=== PATIENT | male | born 1955 | race Caucasian/White ===

== ENCOUNTER 2019-09-23 20:41 | Emergency (ER) | payer OTHER ==
[~2019-09-23] VITALS: Ht 182.9 cm; Wt 140.6 kg
--- NOTE | 2019-09-23 21:24 | NUR ---
Note [email or web address] in ED - 09/23/19 at 2208 by [email or web address] Patient has a 2 cm laceration to left hand. Dr. Rios applied sutures using sterile technique. Edges well approximated. Site cleansed with NSS. No bleeding noted. Pt tolerated well.
[2019-09-23] MEDS ORDERED: BACITRACIN 1 GM OINT TP ONE (21:30)
[2019-09-23] MEDS ORDERED: DIPH-TET-PERTUS Vaccine 0.5 ML VIAL (ADACEL) I.M. ONE (21:30)
[2019-09-23] MEDS ORDERED: LIDOCAINE 1% 10 MG/ML, 20 ML MDV SUBCUT ONE (21:30)
[2019-09-23 21:32] VITALS: BP_SYST 159
--- NOTE | 2019-09-23 21:32 | NUR ---
Patient came to ER. C/O Laceration x today. Patient states "cut meat and cut himself by accident, left finger." A/O, X4, left finger laceration 2.5 cm, pain rate 5/10, bleeding control, vss.
--- NOTE | 2019-09-23 21:32 | NUR ---
Patient to ER bed 06 to gown for evaluation. Side rails up. Report given to BENNY Chowdary
--- NOTE | 2019-09-23 21:38 | NUR ---
Patient has a 2.5 cm laceration to left hand. Dr. Rios applied sutures using sterile technique. Edges well approximated. Site cleansed with NSS. No bleeding noted. Pt tolerated well.
[2019-09-23] MEDS ORDERED: IBUPROFEN 800 MG TABLET PO ONE (22:00)
[2019-09-23 22:06] VITALS: BP_SYST 149
--- NOTE | 2019-09-23 22:06 | NUR ---
Patient given written and verbal discharge instructions and verbalizes understanding. ER MD discussed with patient the results and treatment provided. Patient in stable condition. ID arm band removed. Rx of Tylenol given. Patient educated on pain management and to follow up with PMD. Pain Scale 2/10. Opportunity for questions provided and answered. Medication side effect fact sheet provided.
== END 2019-09-23 22:06 | disposition home or self-care (01) ==
LOC: SED 20:41
DX: S61.211A Laceration without foreign body of left index finger without damage to nail, initial encounter (principal); W26.0XXA Contact with knife, initial encounter; Y93.G3 Activity, cooking and baking; Y92.89 Other specified places as the place of occurrence of the external cause; Y99.8 Other external cause status
CPT/HCPCS: 12002; 90471; 90715; 99283; J2001